=== PATIENT | male | born 1970 | race American Indian/Alaskan Native ===

== ENCOUNTER 2016-11-01 12:46 | Day surgery (SDC) | payer OTHER ==
[2016-11-01] MEDS ORDERED: NA PHOS,M-B/NA PHOS,DI-BA (ADULT) 133 ML ENEMA PR ONE (12:49)
[2016-11-01] MEDS ORDERED: NALOXONE HCL INJ/PF 0.4 MG/1 ML SDV ONE (13:15)
[2016-11-01] MEDS ORDERED: DIPHENHYDRAMINE HCL 50 MG/ML VIAL ONE (13:16)
[2016-11-01] MEDS ORDERED: PROMETHAZINE HCL INJ 25 MG/1 ML VIAL ONE (13:16)
[2016-11-01] MEDS ORDERED: ONDANSETRON HCL INJ/PF 4 MG/2 ML SDV ONE (13:16)
[2016-11-01] MEDS ORDERED: MIDAZOLAM 2 MG/2 ML INJ ONE (13:16)
[2016-11-01] MEDS ORDERED: FENTANYL CITRATE INJ/PF 100 MCG/2 ML AMPUL ONE ×2 (13:16→13:17)
[2016-11-01] MEDS ORDERED: GLUCAGON,HUMAN RECOMB 1 MG INJ ONE (13:17)
[2016-11-01] MEDS ORDERED: FLUMAZENIL INJ 0.5 MG/5 ML VIAL IV ONE (13:17)
[2016-11-01] MEDS ORDERED: EPINEPHRINE INJ 1 MG/10 ML DISP.SYRIN ONE (13:17)
[2016-11-01] MEDS: MIDAZOLAM 2 MG/2 ML INJ ONE ×3 (14:08→14:17)
--- NOTE | 2016-11-01 14:31 | Operative Report ---
Operative Report DATE OF SURGERY: 11/01/16 Operative Report: The risks, benefits and alternatives of the procedure including risks of bleeding, perforation requiring surgery are explained to the patient in detail and informed consent is obtained. Patient is taken back to the endoscopy suite. Patient is placed in a left lateral decubital position. Timeout is called. Conscious sedation medications administered. A rectal examination was done which did not reveal any masses, tears or fissures. An Olympus videoscope was inserted into the patient's rectum. Keeping the lumen in site at all times the scope was then gradually advanced all the way to the cecum. The cecum was identified by the usual anatomical landmarks of the ileocecal valve as well as the appendiceal office. Photodocumentation is obtained. Terminal ileum is intubated. From the cecum the scope was then sequentially pulled back out via the rest segments of the colon including the ascending colon, hepatic flexure, transverse colon, splenic flexure, descending colon and finally rectosigmoid portions of the colon. No retroflexion is done. These include very friable ulcerated mucosa from 0-55 cm. Patient also has ulceration in the terminal ileum suggesting that he does have Crohn's disease. Biopsies are taken essentially ruled out out and provided confirmation. He likely can be started on Humira. PREOPERATIVE DIAGNOSIS: History of ulcerative colitis, rectal bleeding POSTOPERATIVE DIAGNOSIS: Resume severe erosive inflammation along with edema, swelling from 0-55 cm. From that point on to the cecum is normal. Intubation of the terminal ileum reveals ulceration suggestive of Crohn's disease status post biopsy OPERATION: Colonoscopy with biopsy SURGEON: LARRY MIRANDA ANESTHESIA: Moderate Sedation - 4 mgs of Versed, 75 g of fentanyl. TISSUE REMOVED OR ALTERED: Terminal ileum specimens. Left colon specimens COMPLICATIONS: None. ESTIMATED BLOOD LOSS: none. INTRAOPERATIVE FINDINGS: As described above PROCEDURE: Patient tolerated the procedure well. No immediate postprocedure complications are noted. Patient is discharged in good condition. Discharge date 11/01/2016. Discharge diet: Regular. Charge activity: Regular. Await on biopsies 1 to 2 week follow-up Patient is instructed to go the emergency room or call the office should there be any further problems or questions
[2016-11-01 17:48] VITALS: BP 123/73
== END 2016-11-01 15:55 | disposition home or self-care (01) ==
LOC: END 12:46
PROVIDERS: ATTEND Internal Medicine Gastroenterology
PROC: 0DBG8ZX Excision of Left Large Intestine, Via Natural or Artificial Opening Endoscopic, Diagnostic (ICD-10-PCS; 2016-11-01)
PROC: 0DBB8ZX Excision of Ileum, Via Natural or Artificial Opening Endoscopic, Diagnostic (ICD-10-PCS; principal; 2016-11-01 12:30)
DX: K52.9 Noninfective gastroenteritis and colitis, unspecified (principal); K62.5 Hemorrhage of anus and rectum; Z79.899 Other long term (current) drug therapy
CPT/HCPCS: 45380; 88305 ×2; J2250; J3010; J3490; J0171; J1200; J1610; J2310; J2405; J2550

== ENCOUNTER 2017-11-30 18:06 | Emergency (ER) | payer OTHER ==
[2017-11-30] MEDS ORDERED: LEVOFLOXACIN 500 MG TABLET PO ONE (19:13)
[2017-11-30] MEDS ORDERED: IPRATROPIUM/ALBUTEROL 0.5-2.5 MG/3 ML AMPUL NEB ONE (19:13)
[2017-11-30] MEDS ORDERED: AZITHROMYCIN 250 MG TABLET PO ONE (19:14)
[2017-11-30] MEDS ORDERED: DEXAMETHASONE SOD PHOS INJ 10 MG/1 ML VIAL IM ONE (19:14)
--- NOTE | 2017-11-30 19:28 | ER Document Report ---
ED Medical Screen (RME) - General Chief Complaint: Flu Symptoms Stated Complaint: FLU LIKE SYMPTOMS Time Seen by Provider: 11/30/17 19:13 Mode of Arrival: Ambulatory Information source: Patient Notes: This is a 47-year-old man with a history of PTSD, pancreatitis, ulcerative colitis, ADHD. Patient presents to the emergency room for 1 week history of cough, laryngitis, weakness, chills. [facility]. He does have reports for a chest x-ray done a few hours ago which show no pneumonia. He does have a labs which were done a few hours ago which shows a white count of 13,000, otherwise normal labs. Patient states that he has had a sore throat with the above symptoms and that the sore throat was worse yesterday and is gotten a little bit better today. TRAVEL OUTSIDE OF THE [place] IN LAST 30 DAYS: No - HPI Onset: Last week Onset/Duration: Gradual Quality of pain: Dull Severity: Moderate Pain Level: 2 Associated Symptoms: Chills, Cough (productive), Fever, Sinus pain/drainage Exacerbated by: Denies Relieved by: Denies Similar symptoms previously: No Recently seen / treated by doctor: Yes - Related Data Smoking: Non-smoker Frequency of alcohol use: None Drug Abuse: None Allergies/Adverse Reactions: No Known Allergies Allergy (Verified 11/30/17 18:51) Past Medical History - General Information source: Patient - Social History Cigarette use (# per day): No Chew tobacco use (# tins/day): No Frequency of alcohol use: None Drug Abuse: None Lives with: Alone Family history: None - Past Medical History Cardiac Medical History: Denies: Hx Coronary Artery Disease, Hx Heart Attack, Hx Hypertension Pulmonary Medical History: Reports: Hx Pneumonia Denies: Hx Asthma, Hx Bronchitis, Hx COPD Neurological Medical History: Denies: Hx Cerebrovascular Accident, Hx Seizures Renal/ Medical History: Denies: Hx Peritoneal Dialysis GI Medical History: Reports: Hx Irritable Bowel, Hx Ulcerative Colitis Musculoskeltal Medical History: Denies Hx Arthritis Psychiatric Medical History: Reports: Hx Attention Deficit Hyperactivity Disorder, Hx Depression, Hx Post Traumatic Stress Disorder - Immunizations Hx Diphtheria, Pertussis, Tetanus Vaccination: Yes Review of Systems - Review of Systems Notes: Review of systems: Constitutional: Positive for fever chills and weakness EENT: Laryngitis. Denies ear pain, sinus tenderness, throat pain, throat swelling. Cardiovascular: Denies chest pain, palpitations, dyspnea or edema. Respiratory: Productive cough, no hemoptysis Abdomen: Denies abdominal pain, nausea, vomiting, diarrhea. Denies BRBPR or melena. Genitourinary: Denies dysuria, pyuria, hematuria, flank pain. Musculoskeletal: denies joint pain or swelling, denies back pain. Neurologic: Positive for generalized weakness. Denies headache, photophobia, neck stiffness. Denies loss of bowel or bladder function. Denies saddle anesthesia. Skin: Denies rash, lesions. Physical Exam - Vital signs Vitals: Temp Pulse Resp BP Pulse Ox 98.6 F 105 H 20 164/96 H 94 11/30/17 18:25 11/30/17 18:25 11/30/17 18:25 11/30/17 18:25 11/30/17 18:25 Notes: Physical exam: GENERAL: 47-year-old man, alert 3, no acute distress. His oxygen saturation on repeat is 97 and 98% in the ER. He does have laryngitis. Patient is nontoxic-appearing. HEAD: Atraumatic, normocephalic. EYES: Pupils equal round and reactive to light, extraocular movements intact, sclera anicteric, conjunctiva are normal. ENT: TMs normal, nares patent, oropharynx mildly erythematous without focal swelling, uvula deviation herniation or exudates. Moist mucous membranes. NECK: Normal range of motion, supple without obvious mass, no stridor. LUNGS: Scattered wheezes. There is good air movement. HEART: Regular rate and rhythm without murmurs, rubs or gallops. ABDOMEN: Soft, normoactive bowel sounds. No tenderness to palpation. No guarding, no rebound. No masses appreciated. EXTREMITIES: Normal range of motion, no pitting or edema. No clubbing or cyanosis. NEUROLOGICAL: Cranial nerves II through XII grossly intact. Normal speech, moving all extremities. PSYCH: Normal mood, normal affect. SKIN: Warm, Dry, normal turgor, no rashes or lesions noted. Course - Re-evaluation Re-evalutation: 11/30/17 19:27 Note: The patient has symptoms of bronchitis with bronchospasm. He does have a productive cough. He did receive azithromycin, a shot of Decadron and a dual neb in the ER. I will send him home with azithromycin and a metered-dose inhaler. - Vital Signs Vital signs: Temp Pulse Resp BP Pulse Ox 98.6 F 108 H 20 164/96 H 98 11/30/17 18:25 11/30/17 19:00 11/30/17 18:25 11/30/17 18:25 11/30/17 19:00 Doctor's Discharge - Discharge Clinical Impression: Bronchitis with bronchospasm Condition: Stable Disposition: HOME, SELF-CARE Additional Instructions: Thank you [facility]. The examination and treatment you have received in the Emergency Department today has been rendered on an emergency basis only and is not intended to be a substitute for complete medical care. You should contact your doctor as it is important that she/he examine you for any new or remaining problems. If given a copy of any lab tests or radiology reports, please bring them with you when you see your physician. If your problem worsens or new symptoms appear and you are unable to arrange prompt follow-up care, return to the Emergency Department. Specific signs to look out for: Worsening shortness of breath, inability to swallow, any concerns or getting worse. Any other instructions: Rest, drink plenty of fluids. Start the antibiotics tomorrow: You were given today's dose in the ER. Take the inhaler as needed: 2 puffs every 4-6 hours Continue Listerine rinses. Primary Care Doctor's affiliated with [facility]: If you do not have a primary care doctor or you are unable to get an appointment during that time, you can try one of the doctor's below. These are internal medicine doctor's that have admitting priveledges to the hospital ( they will see you both in the office as well as in this hospital if you are ever hospitalized here). Dr. Armando Buckley [address], [place] [phone] Dr Segal Address: [address] [place] [address] , [place] [address] Dr Aguilera Address: [address] [place] [address] , [place] [address] Prescriptions: Azithromycin 250 mg PO DAILY #4 tablet Forms: Return to Work
[2017-11-30] MEDS ORDERED: ALBUTEROL SULFATE HFA (90 MCG/PUFF) 8 GM MDI (1 MDI/ER DISP) IH PRN (19:30)
[2017-11-30 20:15] VITALS: BP 154/90
== END 2017-11-30 20:15 | disposition home or self-care (01) ==
LOC: ER 18:06
DX: J40 Bronchitis, not specified as acute or chronic (principal); J04.0 Acute laryngitis; J02.9 Acute pharyngitis, unspecified; R05 Cough; R53.1 Weakness; R50.9 Fever, unspecified; R06.2 Wheezing; J34.89 Other specified disorders of nose and nasal sinuses; Z87.01 Personal history of pneumonia (recurrent)
CPT/HCPCS: 94640; 99283; 96372; J1100; J3490; J7620